=== PATIENT | female | born 1990 | race Caucasian/White ===

== ENCOUNTER 2018-02-28 17:03 | Emergency (ER) | payer MEDICAID ==
[~2018-02-28] VITALS: Ht 160 cm; Wt 70.3 kg
--- NOTE | 2018-02-28 17:06 | NUR ---
Patient ambulated to bed 5. RN evaluating patient at bedside.
[2018-02-28 17:08] VITALS: BP 105/75
--- NOTE | 2018-02-28 17:08 | NUR ---
28/F BIB SELF c/o repeated li---seen at [facility] 5 days ago dx tension li ; rx naproxen awoke today with left sided pressure type pain to parietal area with left ear "clogged" sensation and nausea. denies injury; ambulatory with steady gait, full clear speech, no facial asymmetry hx---headaches rx----naproxen
--- NOTE | 2018-02-28 17:19 | NUR ---
Dr. Leon evaluating patient at bedside.
[2018-02-28] MEDS ORDERED: PROCHLORPERAZINE 10 MG/2 ML VIAL IM ONE (17:25)
[2018-02-28] MEDS ORDERED: diphenhydrAMINE 50 MG/ML VIAL IM ONE (17:25)
[2018-02-28 18:06] VITALS: BP 100/60
== END 2018-02-28 18:06 | disposition home or self-care (01) ==
LOC: MED 17:03
DX: G44.209 Tension-type headache, unspecified, not intractable (principal)
CPT/HCPCS: 81002; 81025; 96372; 99284; J0780; J1200